=== PATIENT | male | born 1955 | race Caucasian/White ===

== ENCOUNTER 2018-05-25 07:40 | Inpatient (IN) | payer MEDICARE, OTHER | END 2018-05-29 14:01 | disposition home or self-care (01) | LOC: ER 07:40 → ED HOLD 10:52 → SUR 3N 11:44 | DX: K57.32 Diverticulitis of large intestine without perforation or abscess without bleeding (principal); K92.2 Gastrointestinal hemorrhage, unspecified; Z79.01 Long term (current) use of anticoagulants; R11.10 Vomiting, unspecified ==

== ENCOUNTER 2018-06-07 22:06 | Inpatient (IN) | payer MEDICARE, OTHER | END 2018-06-17 17:28 | disposition home or self-care (01) | LOC: ER 22:06 → SUR 3N 06-15 15:28 → ED HOLD 06-08 01:35 → SUR 3N 06-08 06:38 | DX: K57.92 Diverticulitis of intestine, part unspecified, without perforation or abscess without bleeding (principal); K51.90 Ulcerative colitis, unspecified, without complications; K52.9 Noninfective gastroenteritis and colitis, unspecified; D64.9 Anemia, unspecified; D36.9 Benign neoplasm, unspecified site ==

== ENCOUNTER 2018-08-17 08:34 | Outpatient (CLI) | payer MEDICARE ==
[~2018-08-17 08:34] MED LIST: COU4T PO; ESCI20TA38 PO; LACT1CAP26 PO; PANT40TA4 PO
[2018-08-17] MEDS ORDERED: iohexol 300mg/ml 100ml inj. ONE (08:45)
== END 2018-08-17 23:59 | disposition home or self-care (01) ==
LOC: 64 CT 08:34
PROVIDERS: ATTEND Internal Medicine Gastroenterology
DX: K44.9 Diaphragmatic hernia without obstruction or gangrene (principal); K76.89 Other specified diseases of liver; N28.1 Cyst of kidney, acquired; K57.30 Diverticulosis of large intestine without perforation or abscess without bleeding; N40.0 Benign prostatic hyperplasia without lower urinary tract symptoms; K51.80 Other ulcerative colitis without complications; R10.9 Unspecified abdominal pain; R50.9 Fever, unspecified
CPT/HCPCS: 74177; Q9967

== ENCOUNTER 2018-08-26 09:30 | Outpatient (CLI) | payer MEDICARE, MEDICAID ==
[2018-08-26] MEDS ORDERED: iohexol 300mg/ml 100ml inj. ONE (09:42)
== END 2018-08-26 23:59 | disposition home or self-care (01) ==
LOC: 64 CT 09:30
PROVIDERS: ATTEND Internal Medicine
DX: K44.9 Diaphragmatic hernia without obstruction or gangrene (principal); I71.2 Thoracic aortic aneurysm, without rupture; K76.89 Other specified diseases of liver; I50.9 Heart failure, unspecified
CPT/HCPCS: 71270; Q9967

== ENCOUNTER 2018-09-09 12:30 | Outpatient (CLI) | payer MEDICARE, MEDICAID ==
[2018-09-09] MEDS ORDERED: iohexol 300mg/ml 100ml inj. ONE (13:12)
== END 2018-09-09 23:59 | disposition home or self-care (01) ==
LOC: 64 CT 12:30
PROVIDERS: ATTEND Internal Medicine
DX: J34.89 Other specified disorders of nose and nasal sinuses (principal); R51 Headache; M95.8 Other specified acquired deformities of musculoskeletal system; R61 Generalized hyperhidrosis; R50.9 Fever, unspecified
CPT/HCPCS: 70487; Q9967

== ENCOUNTER 2021-07-28 17:45 | Emergency (ER) | payer MEDICARE, MEDICAID ==
[~2021-07-28] VITALS: Ht 180.3 cm; Wt 95.5 kg
[~2021-07-28 17:45] MED LIST changes: -ESCI20TA38 PO; +ESCI20TA39 PO; -PANT40TA4 PO; +PANT40TA54 PO
[2021-07-28] MEDS ORDERED: normal saline 1000ML IV soln IVB ONE ×2 (18:35→20:10)
[2021-07-28] MEDS ORDERED: glycopyrrolate 0.2mg/ml inj IV ONE (18:45)
[2021-07-28 18:52] LABS: BASOPHILS % (AUTO) 0.3 % (0-1); EOSINOPHILS % (AUTO) 0 % (0-6); HEMATOCRIT 43.6 % (42.0-52.0); LYMPHOCYTES # (AUTO) 1.8 X10'3 (1.1-4.8); LYMPHOCYTES % (AUTO) 24.9 % (21-51); MEAN CORPUSCULAR HEMOGLOBIN 30.5 PG (27.0-31.0); MEAN CORPUSCULAR HGB CONC 34.4 g/dL (33.0-36.5); MEAN CORPUSCULAR VOLUME 88.7 FL (78-98); MEAN PLATELET VOLUME 7.9 FL (7.4-10.4); MONOCYTES # (AUTO) 0.6 X10'3 (0-0.9); MONOCYTES % (AUTO) 7.7 % (2-12); NEUTROPHILS # (AUTO) 4.9 X10'3 (1.8-7.7); NEUTROPHILS % (AUTO) 67.1 % (42-75); PLATELET COUNT 178 X10'3 (140-440); RED BLOOD COUNT 4.92 X10'6 (4.70-6.10); RED CELL DISTRIBUTION WIDTH 13.6 % (11.5-14.5); WHITE BLOOD COUNT 7.3 X10'3 (4.5-11.0)
[2021-07-28 19:07] LABS: ALANINE AMINOTRANSFERASE 29 U/L (12-78); ALBUMIN 2.7 G/DL (3.4-5.0); ALBUMIN/GLOBULIN RATIO 0.6 (1.1-1.5); ALKALINE PHOSPHATASE 60 IU/L (46-116); ANION GAP 12 (8-16); ASPARTATE AMINO TRANSFERASE 43 U/L (10-37); BILIRUBIN,TOTAL 2.3 MG/DL (0.1-1.0); BLOOD UREA NITROGEN 13 MG/DL (7-18); CALCIUM 7.5 MG/DL (8.5-10.1); CHLORIDE 102 MMOL/L (99-107); LIPASE 58 U/L (73-393); POTASSIUM 3.4 MMOL/L (3.5-5.1); SODIUM 137 MMOL/L (135-145); TOTAL CARBON DIOXIDE 23.3 MMOL/L (24-32); TOTAL PROTEIN 7.1 G/DL (6.4-8.2); eGFR 75 ML/MIN
[2021-07-28 19:08] LABS: GLUCOSE 101 MG/DL (70-104)
[2021-07-28] MEDS ORDERED: iohexol 300mg/ml 100ml inj. ONE (19:17)
[2021-07-28] MEDS ORDERED: AMOX-580 PO (21:19)
[2021-07-28] MEDS ORDERED: piperacillin/tazo 3.375gm/50ml 50 ML IV ONE (21:20)
[2021-07-28] MEDS ORDERED: loperamide 2mg capsule PO ONE (21:20)
[2021-07-28 21:23] VITALS: BP 12/60
[2021-07-28 22:02] LABS: CLARITY,URINE CLEAR (Clear); COLOR,URINE YELLOW (Yellow); GLUCOSE, URINE NEGATIVE (Neg); KETONES,URINE NEGATIVE (Neg); LEUKOCYTE ESTERASE ,URINE NEGATIVE (Neg); NITRITES, URINE NEGATIVE (Neg); OCCULT BLOOD,URINE SMALL (Neg); PROTEIN,URINE NEGATIVE (Neg)
[2021-07-28 22:07] LABS: UA COLLECTION TYPE NON-SPECIFIED
[2021-07-28 22:08] LABS: BACTERIA,URINE NONE SEEN /HPF (Neg); RBC,URINE 0-2 /HPF (0-2); SQUAMOUS EPITHELIAL CELL,UR FEW /LPF (FEW); WBC,URINE 0-4 /HPF (0-4)
== END 2021-07-28 22:10 | disposition home or self-care (01) ==
LOC: ER 17:46
DX: R19.7 Diarrhea, unspecified (principal); R11.10 Vomiting, unspecified; R10.32 Left lower quadrant pain; Z88.8 Allergy status to other drugs, medicaments and biological substances
CPT/HCPCS: 36415; 74177; 80053; 81001; 83690; 84145; 85025; 96361; 96365; 96375; 99285; J2543; J3490; J7030; Q9967